=== PATIENT | female | born 1945 | race Caucasian/White ===

== ENCOUNTER 2016-09-17 18:00 | Emergency (ER) | payer MEDICARE, OTHER ==
[~2016-09-17] VITALS: Ht 157.5 cm; Wt 68.6 kg
[2016-09-17] MEDS ORDERED: PERCOCET 5/325M1 TAB PO (19:16)
[2016-09-17 19:23] VITALS: BP 172/82
[2016-09-17] MEDS ORDERED: LIPITOR20 MG PO (19:53)
[2016-09-17] MEDS ORDERED: BUDEPRION150 MG PO (19:53)
== END 2016-09-17 19:30 | disposition home or self-care (01) ==
LOC: ED 18:00
DX: S43.422A Sprain of left rotator cuff capsule, initial encounter (principal); M75.52 Bursitis of left shoulder; F41.9 Anxiety disorder, unspecified; K21.9 Gastro-esophageal reflux disease without esophagitis; E03.9 Hypothyroidism, unspecified; X50.1XXA Overexertion from prolonged static or awkward postures, initial encounter; Y93.89 Activity, other specified; Y92.512 Supermarket, store or market as the place of occurrence of the external cause

== ENCOUNTER 2017-09-08 07:17 | Emergency (ER) | payer MEDICARE, OTHER ==
[~2017-09-08] VITALS: Ht 157.5 cm; Wt 69.5 kg
[~2017-09-08 07:17] MED LIST: BUDEPRION150 MG PO; LIPITOR20 MG PO; PERCOCET 5/325M1 TAB PO
[2017-09-08] MEDS ORDERED: ARMOUR THYRO90 MG PO (07:42)
[2017-09-08] MEDS ORDERED: PANTOPRAZOLE SO40 MG PO (07:43)
[2017-09-08] MEDS ORDERED: HYDROCO/APAP1 T10 PO (07:46)
[2017-09-08 08:10] LABS: HEMATOCRIT 38.8 % (37.0-47.0); HEMOGLOBIN 12.6 g/dl (12.0-16.0); IMMATURE GRANULOCYTES 0.5 % (0.0-1.0); MEAN CELL VOLUME 85.5 fL CALC (80.0-100.0); MEAN CORPUSCULAR HGB 27.8 pG CALC (26.0-32.0); MEAN CORPUSCULAR HGB CONC 32.5 g/L CALC (32.0-36.0); NEUT# 7.4 thou/uL (2.00-7.15); RED BLOOD COUNT 4.54 mill/uL (4.20-5.60); RED CELL DISTRI WIDTH 14.3 % (11.5-15.5)
[2017-09-08 08:30] LABS: ALBUMIN 3.5 g/dL (3.2-5.0); BILIRUBIN, TOTAL 0.4 mg/dL (0.0-1.4); CREATININE 1.1 mg/dL (0.5-1.0); POTASSIUM 4.3 mmol/l (3.5-5.1); TOTAL PROTEIN 6.3 g/dL (6.3-8.2)
[2017-09-08 09:35] LABS: URINE BILIRUBIN - DIPSTICK NEGATIVE (NEGATIVE); URINE BLOOD DIPSTICK SMALL (NEGATIVE); URINE COLOR YELLOW; URINE GLUCOSE - DIPSTICK NEGATIVE (NEGATIVE); URINE KETONE NEGATIVE (NEGATIVE); URINE LEUK ESTERASE TRACE (NEGATIVE); URINE NITRITE - DIPSTICK NEGATIVE (Negative); URINE PH 5.5 (4.5-8.0); URINE PROTEIN - DIPSTICK NEGATIVE (NEG-TRACE); URINE UROBILINOGEN - DIPSTICK 0.2 E.U./dL (0.2)
[2017-09-08 09:36] LABS: URINE CLARITY CLEAR; URINE RBC 0-2 RBC/hpf (0-5); URINE WBC 0-2 WBC/hpf (0-5)
[2017-09-08 10:15] VITALS: BP 157/65
== END 2017-09-08 10:15 | disposition home or self-care (01) ==
LOC: ED 07:17
PROVIDERS: Family Medicine
DX: A08.4 Viral intestinal infection, unspecified (principal); R10.13 Epigastric pain; R11.2 Nausea with vomiting, unspecified

== ENCOUNTER 2017-12-23 20:46 | Emergency (ER) | payer MEDICARE, OTHER ==
[~2017-12-23] VITALS: Ht 157.5 cm; Wt 70.9 kg
[~2017-12-23 20:46] MED LIST changes: +ARMOUR THYRO90 MG PO; +HYDROCO/APAP1 T10 PO; +PANTOPRAZOLE SO40 MG PO
[2017-12-23] MEDS ORDERED: LEVOTHYROXINE PO ×2 (21:21→21:22)
[2017-12-23] MEDS ORDERED: [UNRECOGNIZED DRUG - OTHER] PO (21:21)
[2017-12-23] MEDS ORDERED: VOLTAREN - GENE75 MG PO (22:31)
[2017-12-23 22:40] VITALS: BP 132/77
== END 2017-12-23 22:42 | disposition home or self-care (01) ==
LOC: ED 20:46
DX: S86.912A Strain of unspecified muscle(s) and tendon(s) at lower leg level, left leg, initial encounter (principal); M25.562 Pain in left knee; M25.462 Effusion, left knee; X50.3XXA Overexertion from repetitive movements, initial encounter; Y93.01 Activity, walking, marching and hiking; Y92.009 Unspecified place in unspecified non-institutional (private) residence as the place of occurrence of the external cause

== ENCOUNTER 2018-07-14 17:08 | Emergency (ER) | payer MEDICARE, OTHER ==
[~2018-07-14] VITALS: Ht 157.5 cm; Wt 71.8 kg
[~2018-07-14 17:08] MED LIST changes: +LEVOTHYROXINE PO; +VOLTAREN - GENE75 MG PO; +[UNRECOGNIZED DRUG - OTHER] PO
[2018-07-14 17:19] VITALS: BP 135/82
[2018-07-14] MEDS ORDERED: PERCOCET 10/31 COMBO PO (18:54)
[2018-07-14] MEDS ORDERED: AUGMENTIN500TAB PO (18:54)
[2018-07-14] MEDS ORDERED: FLEXERIL PO (18:55)
[2018-07-14] MEDS ORDERED: CLEOCIN150 MG PO (18:59)
== END 2018-07-14 19:20 | disposition home or self-care (01) ==
LOC: ED 17:08
PROC: 0HQNXZZ Repair Left Foot Skin, External Approach (ICD-10-PCS; principal; 2018-07-14)
DX: S91.352A Open bite, left foot, initial encounter (principal); S91.052A Open bite, left ankle, initial encounter; S50.11XA Contusion of right forearm, initial encounter; S80.211A Abrasion, right knee, initial encounter; M19.90 Unspecified osteoarthritis, unspecified site; I10 Essential (primary) hypertension; K21.9 Gastro-esophageal reflux disease without esophagitis; F32.9 Major depressive disorder, single episode, unspecified; W54.0XXA Bitten by dog, initial encounter; Y92.410 Unspecified street and highway as the place of occurrence of the external cause

== ENCOUNTER 2018-07-16 18:29 | Observation (INO) | payer MEDICARE, OTHER ==
[~2018-07-16] VITALS: Ht 157.5 cm; Wt 73.7 kg
[~2018-07-16 18:29] MED LIST changes: +AUGMENTIN500TAB PO; +CLEOCIN150 MG PO; +FLEXERIL PO; +PERCOCET 10/31 COMBO PO
[2018-07-16 19:48] LABS: HEMATOCRIT 38.8 % (37.0-47.0); HEMOGLOBIN 12.6 g/dl (12.0-16.0); IMMATURE GRANULOCYTES 0.3 % (0.0-5.0); MEAN CORPUSCULAR HGB 28.9 pG CALC (26.0-32.0); MEAN CORPUSCULAR HGB CONC 32.5 g/L CALC (32.0-36.0); NEUT# 3.42 thou/uL (2.00-7.15); RED BLOOD COUNT 4.36 mill/uL (4.20-5.60); RED CELL DISTRI WIDTH 13.1 % (11.5-15.5)
[2018-07-16 19:59] LABS: ANION GAP 11 (6-22 (CALC)); BUN 11 mg/dL (8-23); BUN/CREATININE RATIO 13 (12-20 (CALC)); CARBON DIOXIDE 27 mmol/l (22-30); CHLORIDE 106 mmol/l (95-108); CREATININE 0.9 mg/dL (0.5-1.0); GFR > 60 ML/MIN (>=60 (CALC)); GFR FOR AFR.AMER. > 60 ML/MIN (>=60 (CALC)); POTASSIUM 4.3 mmol/l (3.5-5.1); SODIUM 139 mmol/l (137-146)
[2018-07-16 20:42] VITALS: BP 195/84
[2018-07-17 08:10] VITALS: BP 177/65
[2018-07-17] MEDS ORDERED: CIPROFLOXACN500 MG PO (10:55)
[2018-07-17] MEDS ORDERED: METRONIDAZOLE500 MG PO (10:55)
[2018-07-17 11:31] VITALS: BP 141/62
[2018-07-17] MEDS ORDERED: TYLENOL # 31 TA1 PO (11:50)
== END 2018-07-17 12:00 | disposition home or self-care (01) ==
LOC: ED 18:29 → ED-I 20:03 → ED 20:17 → ICU 20:18
PROVIDERS: Family Medicine; ADMIT Internal Medicine; ATTEND Internal Medicine
DX: S91.052A Open bite, left ankle, initial encounter (principal); R11.2 Nausea with vomiting, unspecified; T36.8X5A Adverse effect of other systemic antibiotics, initial encounter; M19.90 Unspecified osteoarthritis, unspecified site; I10 Essential (primary) hypertension; K21.9 Gastro-esophageal reflux disease without esophagitis; F32.9 Major depressive disorder, single episode, unspecified; E03.9 Hypothyroidism, unspecified; I25.2 Old myocardial infarction; W54.0XXA Bitten by dog, initial encounter

== ENCOUNTER 2020-02-23 23:53 | Observation (INO) | payer MEDICARE, OTHER ==
[~2020-02-23] VITALS: Ht 157.5 cm; Wt 72.7 kg
[~2020-02-23 23:53] MED LIST changes: +CIPROFLOXACN500 MG PO; +METRONIDAZOLE500 MG PO; +TYLENOL # 31 TA1 PO
--- NOTE | 2020-02-23 23:56 | NUR ---
PATIENT TO ROOM 6 VIA WHEELCHAIR. PATIENT HAS SUDDEN ONSET CONFUSION AND A FALL TONIGHT WITH A LACERATION TO UPPER INNER LIP. PATIENT UNABLE TO RECALL EVENTS LEADING TO FALL. C/O HEADACHE AND RIGHT HIP PAIN. PATIENT UNSURE IF HEADACHE WAS PRESENT PRIOR TO FALL.
[2020-02-24] VITALS (13 sets, daily range): BP systolic 141–197; BP diastolic 62–85
--- NOTE | 2020-02-24 00:11 | NUR ---
DR. DOBSON ON TELENEURO IN CT. BRIEFED ON PT HX AND EVENTS NOTED SO FAR. DR. DOBSON VIEWED CT SCAN AND NOTED NO BLEED OR AREA OF INFARCT AT PRESENT.
--- NOTE | 2020-02-24 00:33 | NUR ---
UNABLE TO RECONCILE MEDS. PATIENT CURRENTLY CONFUSED. DOES HOWEVER STATE SHE TAKES WELLBUTRIN 300 MG. PHARMACY CONSULT PLACED.
[2020-02-24 00:45] LABS: HEMATOCRIT 34.6 % (37.0-47.0); HEMOGLOBIN 10.8 g/dl (12.0-16.0); IMMATURE GRANULOCYTES 0.5 % (0.0-5.0); MEAN CELL VOLUME 87.4 fL CALC (80.0-100.0); MEAN CORPUSCULAR HGB 27.3 pG CALC (26.0-32.0); MEAN CORPUSCULAR HGB CONC 31.2 g/dL CAL (32.0-36.0); NEUT# 4.22 thou/uL (2.00-7.15); RED BLOOD COUNT 3.96 mill/uL (4.20-5.60); RED CELL DISTRI WIDTH 13.2 % (11.5-15.5)
[2020-02-24 01:00] LABS: ALBUMIN 3.4 g/dL (3.2-5.0); ALKALINE PHOSPHATASE 92 u/l (38-126); AMYLASE 47 u/l (30-110); ANION GAP 8 (6-22 (CALC)); BILIRUBIN, TOTAL 0.3 mg/dL (0.0-1.4); BUN 15 mg/dL (8-23); BUN/CREATININE RATIO 17 (12-20 (CALC)); CARBON DIOXIDE 29 mmol/l (22-30); CHLORIDE 104 mmol/l (95-108); CREATININE 0.9 mg/dL (0.5-1.0); ETHYL ALCOHOL 0 mg/dl (0-30); GFR > 60 ML/MIN (>=60 (CALC)); GFR FOR AFR.AMER. > 60 ML/MIN (>=60 (CALC)); LIPASE 56 u/l (23-300); POTASSIUM 3.5 mmol/l (3.5-5.1); SGOT/AST 22 u/l (9-36); SODIUM 137 mmol/l (137-146); TOTAL PROTEIN 6.4 g/dL (6.3-8.2)
[2020-02-24 01:01] LABS: ACT PARTIAL THROMBO TIME 21.5 SECONDS (20.0-32.5); PROTHROMBIN TIME 10.3 SECONDS (9.0-12.5)
--- NOTE | 2020-02-24 01:08 | NUR ---
PATIENT ASSISTED ON AND OFF BEDPAN. URINE SAMPLE COLLECTED.
[2020-02-24 01:33] LABS: URINE BILIRUBIN - DIPSTICK NEGATIVE (NEGATIVE); URINE BLOOD DIPSTICK TRACE-INTACT (NEGATIVE); URINE COLOR YELLOW; URINE GLUCOSE - DIPSTICK NEGATIVE (NEGATIVE); URINE KETONE NEGATIVE (NEGATIVE); URINE LEUK ESTERASE NEGATIVE (NEGATIVE); URINE NITRITE - DIPSTICK NEGATIVE (Negative); URINE PH 6.5 (4.5-8.0); URINE PROTEIN - DIPSTICK NEGATIVE (NEG-TRACE); URINE UROBILINOGEN - DIPSTICK 0.2 E.U./dL (0.2)
--- NOTE | 2020-02-24 02:15 | NUR ---
DISCUSSED SLOWLY CLIMBING BP WITH MD. MD WILL NOT TREAT AT PRESENT.
--- NOTE | 2020-02-24 02:21 | NUR ---
Admission Note Report Given to: LACY THOMPSON Transported by: Wheelchair X Stretcher Transported with: X Nurse Transporter X Patent IV O2 X Legal Document Specialist Location: X ICU MS2 GOING TO ICU MED/SURG OVERFLOW.
--- NOTE | 2020-02-24 03:10 | NUR ---
TO ICU VIA STRETCHER
--- NOTE | 2020-02-24 03:25 | NUR ---
RECEIVED FROM ER VIA STRETCHER. PATIENT TRANSFERRED TO BED WITH THREE PERSON ASSIST. ALERT, ORIENTED TO PERSON AND PLACE, UNABLE TO STATE DATE, KNOWS THAT IT IS 2019. ABLE TO STATES BIRTHDATE AND CURRENT PRESIDENT. FOLLOWS COMMANDS. MOVES ALL EXTREMITIES. FACE SYMMETRICAL. RESP NON-LABORED. LUNGS CLEAR. O2 SAT 100% ON RA. PIPELINER SHOWS SR. PUREWICK IN PLACE DRAINING CLEAR PALE YELLOW URINE. DISCUSSED PLAN OF CARE. CALL REYES IN REACH.
--- NOTE | 2020-02-24 04:00 | NUR ---
C/O HEADACHE AND CHRONIC BACK PAIN, MEDICATED WITH MOTRIN 800 MG PO.
--- NOTE | 2020-02-24 06:00 | NUR ---
AWAKENS TO NAME. ORIENTED TO PERSON AND PLACE, ALTHOUGH SPEECH IS SLT HESITANT. ASSISTED PATIENT TO TURN AND REPOSITION. NO BRUISING NOTED. LEFT SIDE OF FACE IS SWOLLEN, PATIENT REFUSES ICE PACK. VSS. SR ON MONITOR.
--- NOTE | 2020-02-24 08:04 | NUR ---
PT SLEEPING IN BED. AWAKENED TO COMPLETE ASSESSMENT. PT A&O TO SELF UNABLE TO RECALL EXACT , ONLY MONTH AND YEAR. PT AWARE OF WHERE [facility] IS [facility], [facility] UNABLE TO RECALL WHAT HAPPENED OR WHAT YEAR WE ARE CURRENTLY IN. SHE REMEMBERS WALKING AROUND THE HOUSE AND FALLING STATING THAT SHE WAS ON THE FLOOR FOR ABOUT 30-40 MINS. WELDER SHIELDED METAL ARC WITH LT HAND WEAKER THAN THE RIGHT WELL STRENGTH WITH THE LT FOOT COMPARED TO THE RT. NO S/S OF DISTRESS AT THIS TIME. ASSESSMENT COMPLETED. DISCUSSED POC. CALL LIGHT IN REACH. CONTINUE TO MONITOR.
--- NOTE | 2020-02-24 08:17 | NUR ---
Patient is screened fro rehab intervention and would benefit fromfunctional assessment by PT, OT and ST
--- NOTE | 2020-02-24 08:22 | NUR ---
ATTEMPT MADE TO CALL TO OBTAIN PAST MEDICAL HX WELL UPDATED MED LIST. NO ANSWER AND NO PLACE TO LEAVE VOICEMAIL. WILL TRY AGAIN LATER
--- NOTE | 2020-02-24 08:30 | NUR ---
DR VERMA AT BEDSIDE DISCUSSING POC
--- NOTE | 2020-02-24 09:15 | NUR ---
CONSULT WITH DR SONG CALLED, PER TORI MESSAGE TO BE GIVEN TO DUNCAN. PHYSICAL THERAPY AT BEDSIDE COMPLETING ADMISSION PT EVAL.
--- NOTE | 2020-02-24 09:44 | NUR ---
RANDY RN AT BEDSIDE
[2020-02-24] MEDS ORDERED: LIPITOR20 MG PO (10:19)
[2020-02-24] MEDS ORDERED: PROTONIX40 M2 PO (10:20)
[2020-02-24] MEDS ORDERED: ARMOUR THYRO120 MG PO (10:20)
[2020-02-24] MEDS ORDERED: WELLBUTRIN XL300 MG (10:22)
[2020-02-24] MEDS ORDERED: ESTRACE2 M1 PO (10:24)
--- NOTE | 2020-02-24 10:29 | NUR ---
ATTEMPTED TO OBTAIN CURRENT MED REC. PT ABLE TO LIST MEDICATIONS BUT UNSURE THE EXACT DOSAGE. UNABLE TO OBTAIN MED LIST FROM DUE TO COGNITIVE LIMITATIONS.
--- NOTE | 2020-02-24 10:40 | NUR ---
PT TAKEN TO MRI VIA ACCOMPANIED BY [facility]. DHIRAJ IN MRI NOTIFIED THIS MORNING OF PT HAVING A C SPINE CT THAT SHOWED ANTERIOR FUSION. PT ATIVAN GIVEN PRIOR TO PT TAKEN TO MRI.
[2020-02-24] MEDS ORDERED: PEPCID20 MG PO (11:10)
[2020-02-24] MEDS ORDERED: ARMOUR THYRO90 MG PO (11:11)
[2020-02-24] MEDS ORDERED: NORCO1 TA2 PO (11:16)
[2020-02-24] MEDS ORDERED: ANORO ELLIPTA 61 AER IN (11:23)
--- NOTE | 2020-02-24 11:45 | NUR ---
ROSE MARIE JOHNSON AT [facility] FOR CONSULT
--- NOTE | 2020-02-24 12:35 | NUR ---
SPEECH THERAPY AT BEDSIDE FOR EVAL.
--- NOTE | 2020-02-24 14:50 | NUR ---
LOCKSMITH AT BEDSIDE
--- NOTE | 2020-02-24 16:05 | NUR ---
PT SLEEPING IN BED. NO DISTRESS NOTED. RESP EVEN AND UNLABORED. PT CURRENTLY SINUS WENDY ON TELE MONITOR. CONTINUE TO MONITOR.
--- NOTE | 2020-02-24 18:06 | NUR ---
PER BAYRON GOLDSTEIN TO GIVE NORVASC ORDERED BY ROSE MARIE JOHNSON
--- NOTE | 2020-02-24 18:14 | NUR ---
PT AWAKENED TO TAKE NORVASC. PT ABLE TO SWALLOW WITH NO DIFFICULTY.
--- NOTE | 2020-02-24 19:00 | NUR ---
IN VISITING, ASSISTING PAITENT WITH DINNER TRAY.
--- NOTE | 2020-02-24 19:35 | NUR ---
LEAVING. HE ASKED WHAT TIME SHOULD HE PICK HER UP IN THE MORNING HE UNDERSTANDS SHE WILL BE DISCHARGED THEN. I ADVISED THAT THE DOCTOR WILL ROUND IN THE MORNING, EVALUATE HER AND MAKE THE FINAL DECISION AT THAT TIME. I ADVISED THATHE CAN COME AT VISITING TIME. IF THERE IS A CHANGE BEFORE HE RETURNS, WE WILL CALL. HE THANKED US HE SAID HIS GOOD BYES AND LEFT
--- NOTE | 2020-02-24 20:00 | NUR ---
RESTING IN BED WITH EYES CLOSED. AWAKENS TO NAME. ORIENTED TO PERSON AND PLACE. PATIENT IS ABLE TO STATE HER BIRTHDATE. SPEECH SLT GARBLED-MOUTH SLT SWOLLEN AND LACERATION NOTED INSIDE MOUTH ON LEFT SIDE. LEFT SIDE OF FACE HAS FAINT BRUISING NOTED. PATIENT FOLLOWS COMMANDS, CONTINUES TO DIPLAY LEFT SIDED WEAKNESS. SALINE LOCK IN LAC, SITE BENIGN, FLUSHED AND PATENT. VSS. RA O2 SAT 100% BREATH SOUNDS CLEAR. SAWMILL PRODUCTION WORKER SHOWS SB-SR. DISCUSSED PLAN OF CARE. CALL REYES IN REACH.
--- NOTE | 2020-02-24 22:00 | NUR ---
VSS. RESP NON-LABORED. PATIENT RESTING WITH EYES CLOSED.
--- NOTE | 2020-02-24 23:35 | NUR ---
PATIENT C/O BACK PAIN, REQUESTS TO GET UP TO CHAIR. ASSISTED UP TO CHAIR WITH MINIMUM ASSIST. NO NEURO CHANGES FROM PREVIOUS ASSESSMENT. PATIENT STATES SHE HAS CHRONIC BACK PAIN.
--- NOTE | 2020-02-24 23:43 | NUR ---
C/O BACK PAIN REPORTED TO DR MCGOVERN, NEW ORDERS RECEIVED.
[2020-02-25] VITALS (9 sets, daily range): BP systolic 137–166; BP diastolic 61–88
--- NOTE | 2020-02-25 00:45 | NUR ---
TORADOL 15 MG IVP GIVEN ORDERED FOR C/O BACK PAIN AND HEADACHE. PATIENT REMAINS SITTING UP IN RECLINER. PATIENT AWAKE, ALERT AND TALKATIVE AT THIS TIME. SPEECH CLEAR AND APPROPRIATE.
--- NOTE | 2020-02-25 01:00 | NUR ---
PUREWICK REMOVED WHEN PATIENT UP TO CHAIR. ASSISTED TO BSC AT THIS TIME . VOIDS CLEAR YELLOW URINE.
--- NOTE | 2020-02-25 02:00 | NUR ---
RESTING WITH EYES CLOSED. RESP NON-LABORED. SR ON INTERLOCKING PAVEMENT INSTALLER. LAC SALINE LOCK FLUSHED AND PATENT. MONITOR SB-SR.
--- NOTE | 2020-02-25 04:00 | NUR ---
REMAINS IN RECLINER. SLEEPING. VSS. SR ON MONITOR.
[2020-02-25 05:25] LABS: HEMATOCRIT 35.9 % (37.0-47.0); IMMATURE GRANULOCYTES 0.4 % (0.0-5.0); MEAN CELL VOLUME 87.3 fL CALC (80.0-100.0); MEAN CORPUSCULAR HGB 26.8 pG CALC (26.0-32.0); MEAN CORPUSCULAR HGB CONC 30.6 g/dL CAL (32.0-36.0); NEUT# 3.6 thou/uL (2.00-7.15); RED BLOOD COUNT 4.11 mill/uL (4.20-5.60); RED CELL DISTRI WIDTH 13.4 % (11.5-15.5)
[2020-02-25 05:41] LABS: ALKALINE PHOSPHATASE 99 u/l (38-126); ANION GAP 7 (6-22 (CALC)); BUN 14 mg/dL (8-23); BUN/CREATININE RATIO 18 (12-20 (CALC)); CALCULATED LDLCHOLESTEROL 54 mg/dL (62-129 (CALC)); CARBON DIOXIDE 25 mmol/l (22-30); CHLORIDE 108 mmol/l (95-108); CHOLESTEROL HDL RATIO 2.6 (<4.4 (CALC)); CREATININE 0.8 mg/dL (0.5-1.0); GFR > 60 ML/MIN (>=60 (CALC)); GFR FOR AFR.AMER. > 60 ML/MIN (>=60 (CALC)); HDL CHOLESTEROL 45 mg/dL (>=40); SGOT/AST 18 u/l (9-36); SODIUM 136 mmol/l (137-146); TOTAL CHOLESTEROL 117 mg/dl (0-199); TOTAL PROTEIN 5.7 g/dL (6.3-8.2); TOTAL TRIGLYCERIDES 92 mg/dl (30-149); VLDL CHOLESTROL 18 mg/dl (0-48 (CALC))
[2020-02-25 05:47] LABS: BILIRUBIN, TOTAL 0.5 mg/dL (0.0-1.4)
--- NOTE | 2020-02-25 06:19 | NUR ---
NO CHANGES TO REPORT.
--- NOTE | 2020-02-25 06:46 | NUR ---
REPORT RECEIVED FROM LACY THOMPSON. PT ASLEEP. SR 60 ON MAINTENANCE ENGINEER OIL FIELD. SPO2 96% ON ROOM AIR; RESPIRATIONS EVEN AND UNLABORED. CALL LIGHT WITHIN REACH.
--- NOTE | 2020-02-25 08:00 | NUR ---
PT AT BEDSIDE. PT ASSISTED FROM BEDSIDE CHAIR TO BSC FOR VOID. ASSESSMENT COMPLETED. REPOSITIONED INTO BED SEMI FOWLERS. REMAINS NPO FOR SCHEDULED MODIFIED BARIUM SWALLOW EVAL.
--- NOTE | 2020-02-25 08:18 | NUR ---
DR. MANSFIELD AND TATE AT BEDSIDE.
--- NOTE | 2020-02-25 10:34 | NUR ---
OFF UNIT VIA WHEELCHAIR WITH PHYSICAL THERAPY FOR BARIUM SWALLOW STUDY.
--- NOTE | 2020-02-25 11:41 | NUR ---
RETURNED TO UNIT AND ASSISTED TO BSC.
--- NOTE | 2020-02-25 11:57 | NUR ---
SPEECH THERAPY ON UNIT TO CONFIRM SWALLOW STUDY RESULTS; PT ALLOWED REGULAR DIET WITH ASPIRATION PRECAUTIONS. ASSISTED WITH POSITIONING INTO HIGH FOWLERS; EATING LUNCH AT 90 DEGREES. PT AMBULATED TO [facility] [place] FOR VOID PRIOR TO LUNCH; DENIES DIZZINESS OR LIGHTHEADEDNESS, BUT IS UNSTABLE AND STATES SHE FEELS "WOBBLY." BACK INTO BED WITH ASSIST FROM .
[2020-02-25] MEDS ORDERED: ASPIRIN REGULA325 M1 PO (12:09)
--- NOTE | 2020-02-25 15:00 | NUR ---
IV site discontinued, cath intact. No edema , no redness, voices no discomfort.
--- NOTE | 2020-02-25 15:25 | NUR ---
Discharge instructions given. Patient verbalizes understanding of same. Discharged in stable condition via Wheelchair to Home with spouse. All belongings sent with pt including baker from safe.
--- NOTE | 2020-02-26 07:01 | NUR ---
02/25/20 Patient is seen for transfer training and gait training twice today. She is able to ambulate 4-5 steps with mod assist of 1. I spoke with Cm and discussed her rehab status and the fact she would be an excellent rehab candidate with an Am Pac score of 12 She insists on going home to help care for her but is to follow up with us as an outpatient according to her own report. She improved with her motor plan towards the late morning and could SPT with SBA of 1
== END 2020-02-25 15:25 | disposition home health service (06) ==
LOC: ED 23:53 → ED-I 02-24 01:32 → ED 02-24 01:44 → ICU 02-24 01:45
PROVIDERS: Nurse Practitioner; ADMIT Internal Medicine; ATTEND Internal Medicine
DX: R55 Syncope and collapse (principal); R53.1 Weakness; I10 Essential (primary) hypertension; S00.511A Abrasion of lip, initial encounter; S70.01XA Contusion of right hip, initial encounter; S01.512A Laceration without foreign body of oral cavity, initial encounter; S00.83XA Contusion of other part of head, initial encounter; M16.0 Bilateral primary osteoarthritis of hip; I25.10 Atherosclerotic heart disease of native coronary artery without angina pectoris; E03.9 Hypothyroidism, unspecified; I25.2 Old myocardial infarction; W18.30XA Fall on same level, unspecified, initial encounter; Y93.A3 Activity, aerobic and step exercise; Y92.009 Unspecified place in unspecified non-institutional (private) residence as the place of occurrence of the external cause; Z20.828 Contact with and (suspected) exposure to other viral communicable diseases
CPT/HCPCS: J1650